=== PATIENT | female | born 1945 | race Caucasian/White ===

== ENCOUNTER → 2016-12-15 | Outpatient (CLI) | payer MEDICARE, BC ==
[~2016-12-15] MED LIST: BENAZEPRIL PO; COZAAR 50MG50 MG/TAB PO; HYDROCHLOROTHIA25 MG PO; PREDNISONE10 MG; TYLENOL; ULTRAM 50MG TAB50 MG PO; XALATAN EYE DROPS OU
== END ==
LOC: MC.RAD 10:00
DX: Z12.31 Encounter for screening mammogram for malignant neoplasm of breast (principal)

== ENCOUNTER → 2018-02-16 | Outpatient (CLI) | payer MEDICARE, BC | LOC: MC.RAD 09:20 | DX: Z12.31 Encounter for screening mammogram for malignant neoplasm of breast (principal) ==